=== PATIENT | male | born 1995 | race Caucasian/White ===

== ENCOUNTER 2019-09-01 13:23 | Emergency (ER) | payer SELFPAY ==
[~2019-09-01] VITALS: Ht 167.6 cm; Wt 81.8 kg
[2019-09-01 13:24] VITALS: BP 124/78
[2019-09-01] MEDS ORDERED: PERTUSS(ACELL),DIPH,TET VAC/PF 0.5 ML VIAL IM ONE (14:00)
[2019-09-01] MEDS ORDERED: BACITRACIN 0.9 GM PACKET OINTMENT TP ONE (14:00)
[2019-09-01] MEDS ORDERED: LIDOCAINE/PF 1% 5 ML VIAL INJ ONE (14:00)
== END 2019-09-01 14:50 | disposition home or self-care (01) ==
LOC: EMS 13:25
DX: S61.216A Laceration without foreign body of right little finger without damage to nail, initial encounter (principal); W45.8XXA Other foreign body or object entering through skin, initial encounter; Y93.89 Activity, other specified; Y92.89 Other specified places as the place of occurrence of the external cause; Y99.8 Other external cause status
CPT/HCPCS: 12001; 90471; 90715; 99283; J2001